=== PATIENT | female | born 1990 | race Caucasian/White ===

== ENCOUNTER 2018-01-20 10:46 | Inpatient (IN) | payer BC ==
[2018-01-20 11:21] VITALS: BMI 30.5
[2018-01-20 11:52] LABS: Amnisure Test RUPTURE DETECTED (No Rupture)
[2018-01-20 11:53] LABS: Amnisure Internal Control QC ACCEPTABLE (ACCEPTABLE)
[2018-01-20] MEDS: Lactated Ringer's 1,000 ML IV SCH ×3 (12:25→19:51)
[2018-01-20] MEDS ORDERED: Carboprost 250 MCG/ML AMP IM PRN (12:43)
[2018-01-20] MEDS ORDERED: Diphenoxylate HCl/Atropine Tablet PO PRN (12:43)
[2018-01-20] MEDS ORDERED: Butorphanol Tartrate 1 MG/ML VIAL SLOW IVP PRN (12:43)
[2018-01-20] MEDS ORDERED: Promethazine HCl 25 MG/ML VIAL IM PRN ×2 (12:43→16:38)
[2018-01-20] MEDS ORDERED: Ondansetron HCl/PF 4 MG/2 ML Vial IVP PRN ×2 (12:43→16:38)
[2018-01-20] MEDS ORDERED: HYDROcodone/Acetaminophen 5/325 mg Tablet PO PRN ×2 (12:43)
[2018-01-20] MEDS ORDERED: Acetaminophen 1,000 MG in Premix Bag 1 BAG IVPB PRN (12:43)
[2018-01-20] MEDS ORDERED: Lidocaine 1% (PF) 30 ML VIAL SC PRN (12:43)
[2018-01-20] MEDS ORDERED: Ibuprofen 800 MG TAB PO PRN (12:43)
--- NOTE | 2018-01-20 12:44 | PDOC.LDHP ---
Labor and Delivery H&P Chief complaint: loss of fluid, other (t 100.1, LOF since 1999 on 01/19) Current gestational age (weeks): 37 Dating criteria: last menstrual period, first trimester ultrasound Grav: 1 Para: 0 Current complications: none Abnormal US findings: No Current medications: none Previous surgical history: none Allergies/Adverse Reactions: Allergies Allergy/AdvReac Type Severity Reaction Status Date / Time No Known Allergies Allergy Unverified 01/20/18 11:18 Social history: none - Physical Exam Vital signs reviewed and normal: yes (mild fever noted) General: NAD Heart: RRR Lungs: CTAB Abdomen: gravid Extremeties: no edema FHT: category 1, absent or minimal variables - Vaginal Exam cm dilated: 0 Effacement: 25% Station: -2 - OB Labs Blood type: O RH: positive Antibody Screen: negative HIV: negative RPR: negative HEPSAg: negative 1 hour GCT: negative GBS: negative Urine drug screen: not done Rubella: immune - Assessment L&D Assessment: premature rupture of membranes (- no ctx, with presumed early choirio) - Plan Plan: admit to L&D (, begin pitocin. may need cook balloon, begin amp and gent. )
[2018-01-20] MEDS ORDERED: NS w/ Oxytocin 10 units 500 ML IV SCH (12:45)
[2018-01-20] MEDS ORDERED: Lactated Ringer's 1,000 ML IV SCH (12:45)
[2018-01-20 12:55] LABS: Hemoglobin 11.9 g/dL (12.0-16.0); Mean Corpuscular HGB CONC 34.5 g/dL (32.0-36.0); Mean Corpuscular Hemoglobin 31.8 pg (27.0-31.0); Mean Corpuscular Volume 92.1 fl (81.0-99.0); Mean Platelet Volume 7.4 fL (7.4-10.4); Platelet Count 333 thou/uL (130-400); RBC Distribution Width 12.3 % (11.5-14.5); Red Blood Cell (RBC) Count 3.76 mill/uL (4.20-5.40); White Blood Cell (WBC) Count 12.5 thou/uL (4.8-10.8)
[2018-01-20] MEDS: Ampicillin 2 GM in Sodium Chloride 0.9% 100 ML IVPB SCH ×2 (13:00→19:51)
[2018-01-20 13:33] LABS: Syphilis Antibody Nonreactive (Nonreactive); Syphilis Antibody Index 0.02 S/CO (<1.00 Non-Reactive)
[2018-01-20 13:35] LABS: HBSAg Index 0.17 S/CO (0-0.99); Hep B Surf Ag Non-Reactive S/CO (NonReactive)
[2018-01-20] MEDS: Gentamicin Sulfate 80 MG in Premix Bag 1 BAG IVPB SCH ×2 (14:00→22:40)
[2018-01-20] MEDS ORDERED: DISCONTINUE ALL PREVIOUS NARCOTICS FS SCH (16:00)
[2018-01-20] MEDS ORDERED: Acetaminophen 325 MG TAB PO PRN (16:38)
[2018-01-20] MEDS ORDERED: diphenhydrAMINE 50 MG/ML VIAL IVP PRN (16:38)
[2018-01-20] MEDS ORDERED: Eucerin (Mineral Oil/Petrolatum,White) 30 gm Jar TOP PRN (16:38)
[2018-01-20] MEDS ORDERED: Lactated Ringer's 500 ML IV PRN (16:38)
[2018-01-20] MEDS ORDERED: ePHEDrine/0.9% NaCl/PF SYRINGE 50 mg/10 ml SLOW IVP PRN (16:38)
[2018-01-20] MEDS ORDERED: Naloxone HCl 0.4 mg/ml Vial IVP PRN ×2 (16:38)
[2018-01-20] MEDS ORDERED: Communication Order-Pharmacy FS SCH (16:45)
[2018-01-20] MEDS ORDERED: Fentanyl 4mcg/Marcaine 0.1% Cassette 100 ML EPIDURAL SCH (16:45)
[2018-01-20] MEDS: Bupivacaine 0.5% 20 ML, fentaNYL Citrate/PF 400 MCG in Sodium Chloride 0.9% 72 ML EPIDURAL SCH ×2 (16:45→22:02)
[2018-01-20] MEDS: NS / Oxytocin 40 units/1000ml 1,000 ML IV PRN (23:35)
--- NOTE | 2018-01-20 23:46 | PDOC.OPDEL ---
OB Operative/Delivery Note Delivery Dr/Surgeon: Nghia Pre-Delivery Diagnosis: active labor Procedure/Post Delivery Dx: spontaneous vaginal delivery Weeks gestation: 37 Anesthesia: epidural - Findings A Sex: female - 1 min: 9 - 5 min: 9 - Additional Findings/Plan Placenta delivered: spontaneous Repaired Obstetrical Laceration: 1st degree Estimated blood loss: 300 Post delivery plan: routine recovery
--- NOTE | 2018-01-21 00:22 | PRG ---
DATE OF SERVICE: 01/20/2018 TIME OF SERVICE: 1914 The patient is resting comfortably. She has a labor epidural. heart rate tracing is category 1, she is having contractions every 2-3 minutes. She is on 18 milliunits . Her cervical exam i s 1, 95% effaced and 0 station. Cook cervical dilatation balloon was placed at 80 and 80 mL in the b alloon. The patient tolerated the procedure well. We will continue her antibiotics, Pitocin and ant icipate spontaneous vaginal delivery.
[2018-01-21] MEDS: NS / Oxytocin 40 units/1000ml 1,000 ML IV PRN (01:54)
[2018-01-21] MEDS ORDERED: NS / Oxytocin 40 units/1000ml 1,000 ML IV SCH (02:25)
[2018-01-21] MEDS ORDERED: diphenhydrAMINE 25 MG CAP PO PRN (02:25)
[2018-01-21] MEDS ORDERED: HYDROcodone/Acetaminophen 5/325 mg Tablet PO PRN ×2 (02:25)
[2018-01-21] MEDS ORDERED: Lanolin Ointment 7 GM TUBE TOP PRN (02:25)
[2018-01-21] MEDS ORDERED: Milk Of Magnesia 30 ML UDCUP PO PRN (02:25)
[2018-01-21] MEDS ORDERED: Promethazine HCl 25 MG/ML VIAL IM PRN (02:25)
[2018-01-21] MEDS ORDERED: Zolpidem Tartrate 5 MG TAB PO PRN (02:25)
[2018-01-21] MEDS ORDERED: Ondansetron HCl/PF 4 MG/2 ML Vial IVP PRN (02:25)
[2018-01-21] MEDS ORDERED: Bisacodyl 10 MG SUPP PR PRN (02:25)
[2018-01-21] MEDS ORDERED: traMADol HCl 50 MG TAB PO PRN ×2 (02:25)
[2018-01-21] MEDS ORDERED: Adacel (T-DAP) 0.5 ML VIAL IM ONE (02:25)
[2018-01-21] MEDS ORDERED: Ibuprofen 800 MG TAB PO SCH (06:00)
[2018-01-21] MEDS: Ferrous Sulfate 325 MG TAB PO SCH ×2 (08:29→13:45)
[2018-01-21] MEDS: Ampicillin 2 GM in Sodium Chloride 0.9% 100 ML IVPB SCH (08:50)
[2018-01-21] MEDS: Docusate Calcium (SURFAK) 240 MG CAP PO SCH ×2 (08:51→21:21)
[2018-01-21] MEDS: Prenatal Vitamin 1 TAB PO SCH (08:51)
[2018-01-21] MEDS: Ibuprofen 800 MG TAB PO SCH ×2 (10:24→21:22)
--- NOTE | 2018-01-21 11:38 | PDOC.PP ---
Post Progress Note Post Day #: 1 PO intake tolerated: yes Flatus: yes Ambulation: yes Vital Signs (12 hours) Temp Pulse Resp BP BP 01/21/18 07:45 97.7 F 79 18 105/57 L 01/21/18 04:00 98.5 F 89 18 112/55 L 01/21/18 03:00 99.0 F 84 16 106/60 106/60 01/21/18 02:01 98.1 F 88 18 118/68 Weight Weight 178 lb - Physical Examination General: NAD Cardiovascular: no m/r/g, RRR Respiratory: clear to auscultation bilaterally Abdominal: + bowel sounds, lochia Extremities: negative homans (B) Psychiatric: A&Ox3, normal affect Result Diagrams: 01/20/18 12:25 Additional Labs: Post Labs Blood Type O POSITIVE 01/20/18 12:25 Hep Bs Antigen Non-Reactive S/CO (NonReactive) 01/20/18 12:25 (1) Chorioamnionitis in third trimester Code(s): O41.1230 - CHORIOAMNIONITIS, THIRD TRIMESTER, NOT APPLICABLE OR UNSP Status: Acute Qualifiers: Fetus number: single or unspecified fetus Qualified Code(s): O41.1230 - Chorioamnionitis, third trimester, not applicable or unspecified - Assessment/Plan soing well. tm 99.0 post delivery. off abx. home sat am 5/26 if remains afebrile
[2018-01-22] MEDS: Ibuprofen 800 MG TAB PO SCH ×4 (05:31→20:47)
[2018-01-22] MEDS: Prenatal Vitamin 1 TAB PO SCH (10:25)
[2018-01-22] MEDS: Docusate Calcium (SURFAK) 240 MG CAP PO SCH ×2 (10:25→20:47)
[2018-01-22] MEDS: Ferrous Sulfate 325 MG TAB PO SCH ×2 (10:26→17:00)
--- NOTE | 2018-01-22 13:01 | PDOC.PP ---
Post Progress Note Post Day #: 2 PO intake tolerated: yes Flatus: yes Ambulation: yes Vital Signs (12 hours) Temp Pulse Resp BP 01/22/18 08:00 97.9 F 88 16 106/70 Weight Weight 178 lb - Physical Examination General: NAD Cardiovascular: no m/r/g, RRR Respiratory: clear to auscultation bilaterally Abdominal: + bowel sounds, lochia Extremities: negative homans (B) Neurological: no gross focal deficits Psychiatric: A&Ox3, normal affect Result Diagrams: 01/20/18 12:25 Additional Labs: Post Labs Blood Type O POSITIVE 01/20/18 12:25 Hep Bs Antigen Non-Reactive S/CO (NonReactive) 01/20/18 12:25 (1) Chorioamnionitis in third trimester Code(s): O41.1230 - CHORIOAMNIONITIS, THIRD TRIMESTER, NOT APPLICABLE OR UNSP Status: Acute Qualifiers: Fetus number: single or unspecified fetus Qualified Code(s): O41.1230 - Chorioamnionitis, third trimester, not applicable or unspecified - Assessment/Plan doing well. dc home tomorrow 01/23
[2018-01-23] MEDS: Ibuprofen 800 MG TAB PO SCH (05:57)
--- NOTE | 2018-01-23 06:08 | PDOC.PP ---
Post Progress Note Post Day #: PPD#2 Subjective: Doing well, no c/o. PO intake tolerated: yes Ambulation: yes Vital Signs (12 hours) Temp Pulse Resp BP 01/22/18 20:45 98.1 F 61 20 112/56 L Weight Weight 80.739 kg - Physical Examination General: NAD Respiratory: non-labored breathing Psychiatric: A&Ox3, normal affect Result Diagrams: 01/20/18 12:25 Additional Labs: Post Labs Blood Type O POSITIVE 01/20/18 12:25 Hep Bs Antigen Non-Reactive S/CO (NonReactive) 01/20/18 12:25 - Assessment/Plan Doing well. DC home. Precautions. F/u with Dr. Agrawal in 6 weeks.
[2018-01-23 08:00] VITALS: BP 117/58; TEMP 98.9
[2018-01-23] MEDS: Prenatal Vitamin 1 TAB PO SCH (08:35)
[2018-01-23] MEDS: Docusate Calcium (SURFAK) 240 MG CAP PO SCH (08:35)
[2018-01-23] MEDS: Ferrous Sulfate 325 MG TAB PO SCH (08:36)
== END 2018-01-23 12:05 | disposition home or self-care (01) | DRG 775 ==
LOC: L&D/OP 10:46 → L&D 12:08 → 3SW 01-21 02:01
PROVIDERS: ADMIT Obstetrics & Gynecology; ATTEND Obstetrics & Gynecology
PROC: 10E0XZZ Delivery of Products of Conception, External Approach (ICD-10-PCS; principal; 2018-01-20)
PROC: 0HQ9XZZ Repair Perineum Skin, External Approach (ICD-10-PCS; 2018-01-20)
DX: O41.1230 Chorioamnionitis, third trimester, not applicable or unspecified (principal); O70.0 First degree perineal laceration during delivery; Z3A.37 37 weeks gestation of pregnancy; Z37.0 Single live birth
CPT/HCPCS: 51702; 76815; 84112; 85027; 86780; 86850; 86900; 86901; 87340; 99285; J0290; J1580; J3010; J3490; J7050